=== PATIENT | male | born 1990 | race Caucasian/White ===

== ENCOUNTER 2020-10-09 08:54 | Outpatient (REF) | payer OTHER, SELFPAY ==
--- NOTE | 2020-10-09 09:00 | EMG_ITS ---
Left tibial and peroneal motor and sensory studies were performed. Left superficial peroneal, sensory, and median and lateral plantar sensory studies were performed. Tibial H reflex was obtained. Paraspinal muscles were tested with a needle. IMPRESSION: [id number] axonal sensory motor peripheral neuropathy with no evidence of tarsal tunnel syndrome. MD CANDIDO Trevino/DAVID / [id number]
== END 2020-10-09 08:55 | disposition home or self-care (01) ==
LOC: HO.NEURO 08:54
PROVIDERS: PCP Internal Medicine; Visit Provider Internal Medicine
DX: M79.672 Pain in left foot (principal); R20.0 Anesthesia of skin
CPT/HCPCS: 95886; 95910

== ENCOUNTER → 2022-06-14 09:57 | Outpatient (BNVA) | payer OTHER, SELFPAY | PROVIDERS: PCP Internal Medicine; Visit Provider Internal Medicine | DX: R20.8 Other disturbances of skin sensation (principal); M79.672 Pain in left foot | CPT/HCPCS: 99202 ==

== ENCOUNTER 2022-08-18 08:39 | Outpatient (REF) | payer OTHER, SELFPAY ==
--- NOTE | 2022-08-18 | EMG_ITS ---
Please see scanned EMG / Nerve Conduction Report. MTDD
== END 2022-08-18 08:40 | disposition home or self-care (01) ==
LOC: HO.NEURO 08:39
PROVIDERS: PCP Internal Medicine; Visit Provider Internal Medicine
DX: Z13.89 Encounter for screening for other disorder (principal)

== ENCOUNTER 2024-02-29 09:07 | Outpatient (REF) | payer OTHER, SELFPAY ==
--- NOTE | ~2024-02-29 | XR_ITS ---
EXAMINATION: XR KNEE, RIGHT CLINICAL INFORMATION: Pain in right knee COMPARISON: None available. TECHNIQUE: Three views of the right knee. FINDINGS: No significant pleural effusion. Bone mineralization is normal. Alignment preserved. Joint spaces are maintained. XR/XR knee RT 3V IMPRESSION: Unremarkable exam.
== END 2024-02-29 09:08 | disposition home or self-care (01) ==
LOC: HO.HOSX 09:07
PROVIDERS: Visit Provider Orthopaedic Surgery
DX: M25.561 Pain in right knee (principal)
CPT/HCPCS: 73562; 99202

== ENCOUNTER 2024-02-29 12:37 | Outpatient (AMB) | payer OTHER, SELFPAY ==
--- NOTE | 2024-02-29 12:40 | MHC.OFFVIS ---
Intake Visit Reasons: New Pt - right knee pain Intake Note: This is a 33 year old male that presents for right knee pain and giving way. The patient states that he injured his right knee several years ago while skateboarding. He twisted his knee and had acute onset of pain. Since that time his symptoms have gotten worse. He has not been able to ride a bike because of his pain. Most of the pain is along the medial aspect of his knee. He did have an MRI at [facility]. The patient states that he was told that his symptoms are likely due to ?plica?. He states that his right knee will give out several times per day. He has done physical therapy which aggravated his pain. He has also taken Tylenol and anti-inflammatory medicines which gave him minimal relief. Allergies No Known Allergies Allergy (Verified 02/29/24 12:49) Medication List - Last Reconciled 03/01/24 by Jorge Ma MD quetiapine 25 mg PO BID [facility] Medical History (Updated 02/28/24 @ 10:55 by Jorge Ma MD) Asthma Abscess of left breast Physical Exam Const Other: Well-nourished well-developed very friendly male awake alert and oriented x3 in no acute distress Extrem Other: Bilateral lower extremity examination shows good capillary refill, no skin lesions noted, normal sensation light touch Right knee examination shows a minimal effusion, minimal crepitus with range of motion, tenderness along his medial joint line, positive Hansel's test, no instability Results Reviewed Results Reviewed: Standing full weight-bearing x-rays of the patient's right knee show minimal joint space narrowing, no acute bony abnormalities Assessment & Plan Assessment & Plan (1) Right knee pain: Code(s): M25.561 - Pain in right knee Category: Medical Plan Mr. Mcclelland presents with progressively worsening right knee pain and mechanical symptoms most likely due to a medial meniscus tear and possible plica syndrome. The patient's will get his MRI films and bring them back to me to review. He will continue with his activity modifications in the meantime. Feel free to call me at any time should questions regarding his orthopedic management arise. Thank you very much for asking me to see this very friendly gentleman. I spent 21 minutes in reviewing the patient's records and imaging studies, seeing the patient and documenting in the medical record. Orders: Orders XR knee RT 3V 02/29/24 M25.561 - Pain in right knee Coding Level of Care Code New Pt Level 2 (84956) Diagnoses Right knee pain M25.561
== END 2024-02-29 13:04 | disposition home or self-care (01) ==
PROVIDERS: PCP Internal Medicine; Visit Provider Orthopaedic Surgery
DX: M25.561 Pain in right knee (principal)
CPT/HCPCS: 99204

== ENCOUNTER 2024-03-14 11:48 | Outpatient (AMB) | payer OTHER, SELFPAY ==
--- NOTE | 2024-03-14 11:49 | A.OFFVIS_ITS ---
Intake Visit Reasons: OV-right knee pain-follow up Intake Note: This is a 33 year old male that presents for right knee pain. The patient states that he injured his right knee several years ago while skateboarding. He twisted his knee and had acute onset of pain. Since that time his symptoms have gotten worse. He has not been able to ride a bike because of his pain. Most of the pain is along the medial aspect of his knee. He did have an MRI at [facility]. The patient states that he was told that his symptoms are likely due to ?plica?. He states that his right knee will give out several times per day. He has done physical therapy which aggravated his pain. He has also taken Tylenol and anti-inflammatory medicines which gave him minimal relief. Allergies shellfish derived Allergy (Severe, Verified 03/14/24 11:50) throat swelling tree nut Allergy (Severe, Verified 03/14/24 11:50) throat swelling [facility] Medical History (Updated 02/28/24 @ 10:55 by Jorge Ma MD) Asthma Abscess of left breast Physical Exam Extrem Other: Bilateral lower extremity examination shows good capillary refill, no skin lesions noted, normal sensation light touch Right knee examination shows no appreciable effusion, no crepitus with range of motion, no joint line tenderness Results Reviewed Results Reviewed: MRI of the patient's right knee shows no significant degenerative changes, a small plica band along the medial aspect of the patella Assessment & Plan Assessment & Plan (1) Right knee pain: Code(s): M25.561 - Pain in right knee Category: Medical Plan Mr. Mcclelland presents with right knee pain of unclear etiology. The patient does have a small plica band seen on his MRI. I am not convinced that this is the source of his symptoms. I am not sure that surgical intervention would significantly benefit the patient at this time. I would like for the patient to get a 2nd opinion regarding his treatment options from my partner, Dr. Saucedo. I will arrange for this appointment. The patient will follow-up as instructed. Feel free to call me at any time should questions regarding his orthopedic management arise. I spent 14 minutes in reviewing the patient's records and imaging studies, seeing the patient and documenting in the medical record. Coding Level of Care Code Est Pt Level 1 (09634) Diagnoses Right knee pain M25.561
== END 2024-03-14 12:50 | disposition home or self-care (01) ==
PROVIDERS: PCP Internal Medicine; Visit Provider Orthopaedic Surgery
DX: M25.561 Pain in right knee (principal)

== ENCOUNTER → 2024-03-14 11:48 | Outpatient (BNVA) | payer OTHER, SELFPAY | PROVIDERS: PCP Internal Medicine; Visit Provider Orthopaedic Surgery | DX: M25.561 Pain in right knee (principal) | CPT/HCPCS: 99211 ==

== ENCOUNTER 2024-04-16 12:44 | Outpatient (AMB) | payer OTHER, SELFPAY ==
--- NOTE | 2024-04-16 12:48 | A.OFFVIS_ITS ---
Vital Signs 04/16/24 12:50 Height 5 ft 8 in Weight 140 lb BMI 21.3 Intake Visit Reasons: OV- Rt knee pain Intake Note: Cedrick is a 33 year old male who presents today for a second opinion for his right knee pain. Patient reports he twisted his right knee skateboarding many years ago. He expresses intermittent discomfort at the end of the day but he is able to tolerate it without medications. He would like to know if he could start bike riding without causing an injury to his knee. Allergies shellfish derived Allergy (Severe, Verified 04/16/24 12:50) throat swelling tree nut Allergy (Severe, Verified 04/16/24 12:50) throat swelling HPI HPI OV- Rt knee pain: Details: Cedrick is a 33 year old male who presents today for a second opinion for his right knee pain. Patient reports he twisted his right knee skateboarding many years ago. He expresses intermittent discomfort at the end of the day but he is able to tolerate it without medications. He would like to know if he could start bike riding without causing an injury to his knee. He had an MRI which suggested a possible small medial plica. [facility] Medical History (Updated 02/28/24 @ 10:55 by Jorge Ma MD) Asthma Abscess of left breast Social History (Updated 04/16/24 @ 12:51 by SOWMYA Lou) Alcohol intake: never Patient Tobacco Use Status: Never used Tobacco service: No Current occupational status: unemployed Physical Exam Vital Signs: BMI result Body Mass Index 21.3 Extrem Other: There is TTP just medial to the patellar tendon at the level of the joint. There is no effusion. He has full ROM with stable ligamentous exam. Assessment & Plan Assessment & Plan (1) Right knee pain: Code(s): M25.561 - Pain in right knee Category: Medical Plan: Right knee pain with MRI suggesting possible small plica. I would not recommend intervention at this time. He may ride his bike and if his pain worsens he will return to see me. Coding Level of Care Code Est Pt Level 3 (52910) Diagnoses Right knee pain M25.561
[2024-04-16 12:50] VITALS: BMI 21.3
== END 2024-04-16 13:12 | disposition home or self-care (01) ==
PROVIDERS: PCP Internal Medicine; Visit Provider Orthopaedic Surgery
DX: M25.561 Pain in right knee (principal)
CPT/HCPCS: 99212

== ENCOUNTER → 2024-04-16 12:44 | Outpatient (BNVA) | payer OTHER, SELFPAY | PROVIDERS: PCP Internal Medicine; Visit Provider Orthopaedic Surgery | DX: M25.561 Pain in right knee (principal) | CPT/HCPCS: 99212 ==